=== PATIENT | female | born 1970 | race Caucasian/White ===

== ENCOUNTER 2017-07-16 09:44 | Inpatient (IN) | payer BC ==
--- NOTE | 2017-07-16 09:59 | ER Document Report ---
ED General - General Chief Complaint: Chest Pain Stated Complaint: CHEST PAIN Time Seen by Provider: 07/16/17 09:58 Mode of Arrival: Ambulatory Information source: Patient TRAVEL OUTSIDE OF THE [place] IN LAST 30 DAYS: No - HPI Notes: 47 yr old female presents today with complaints of having substernal chest pain that started 6 hours ago while she was driving, reports pain radiated to right and left arms. episode lasted for approximately 5 minutes. pt took nitro that she had in her bag and noticed her chest pain was relieved after taking medication. Pt states she had a cardiac authorization done approximately 6 years ago when she was [place] when she had substernal chest pain. Patient was following with cardiology annually while she was in [place], although she lost her health insurance 2 years ago, states she just received a job where she is able to receive health insurance again. She smokes half a pack a day for last 10 years. Reports history of hypercholesterolemia. States her father of Hodgkin's, unknown if he had any cardiac or heart conditions. Mother patient reports has a history of hypertension diabetes. 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 Patient has not had any chest pain since she took nitro tablet this morning. Denies fevers, chills, chest pain, palpitations, shortness of breath, dyspnea, nausea, vomiting, diarrhea, abdominal pain, hematuria,blurred vision, double vision, loss of vision, speech changes, LH, dizziness, syncope, headaches, wheezing, ST, URI, neck pain, weakness, bowel or bladder dysfunction, saddle anesthesia, numbness or tingling in bilateral upper or lower extremities equally, muscle paralysis, weakness in bilateral upper or lower extremities equally or rash. Denies IV drug use. - Related Data Allergies/Adverse Reactions: No Known Allergies Allergy (Unverified 07/16/17 09:45) Past Medical History - General Information source: Patient - Social History Smoking Status: Current Every Day Smoker - 1/2 ppd x 10 years Family History: CAD, Hypertension Review of Systems - Review of Systems Notes: REVIEW OF SYSTEMS: CONSTITUTIONAL : Denies fever, chills, or sweats. Denies recent illness. EENT: Denies eye, ear, throat, or mouth pain or symptoms. Denies nasal or sinus congestion or discharge. Denies throat, tongue, or mouth swelling or difficulty swallowing. CARDIOVASCULAR: reports chest pain. Denies palpitations or racing or irregular heart beat. Denies ankle edema. RESPIRATORY: Denies cough, cold, or chest congestion. Denies shortness of breath, difficulty breathing, or wheezing. GASTROINTESTINAL: Denies abdominal pain or distention. Denies nausea, vomiting , or diarrhea. Denies blood in vomitus, stools, or per rectum. Denies black, tarry stools. Denies constipation. GENITOURINARY: Denies difficulty urinating, painful urination, burning, frequency, blood in urine, or discharge. FEMALE GENITOURINARY: Denies vaginal bleeding, heavy or abnormal periods, irregular periods. Denies vaginal discharge or odor. MUSCULOSKELETAL: Denies back or neck pain or stiffness. Denies joint pain or swelling. SKIN: Denies rash, lesions or sores. HEMATOLOGIC : Denies easy bruising or bleeding. LYMPHATIC: Denies swollen, enlarged glands. NEUROLOGICAL: Denies confusion or altered mental status. Denies passing out or loss of consciousness. Denies dizziness or lightheadedness. Denies headache. Denies weakness or paralysis or loss of use of either side. Denies problems with gait or speech. Denies sensory loss, numbness, or tingling. Denies seizures. PSYCHIATRIC: Denies anxiety or stress. Denies depression, suicidal ideation, or homicidal ideation. ALL OTHER SYSTEMS REVIEWED AND NEGATIVE. PHYSICAL EXAMINATION: GENERAL: Well-appearing, well-nourished and in no acute distress. HEAD: Atraumatic, normocephalic. EYES: Pupils equal round and reactive to light, extraocular movements intact, conjunctiva are normal. ENT: Nares patent, oropharynx clear without exudates. Moist mucous membranes. NECK: Normal range of motion, supple without lymphadenopathy LUNGS: Breath sounds clear to auscultation bilaterally and equal. No wheezes rales or rhonchi. HEART: Regular rate and rhythm without murmurs ABDOMEN: Soft, nontender, nondistended abdomen. No guarding, no rebound. No masses appreciated. Female : deferred Musculoskeletal: Normal range of motion, no pitting or edema. No cyanosis. NEUROLOGICAL: Cranial nerves grossly intact. Normal speech, normal gait. Normal sensory, motor exams PSYCH: Normal mood, normal affect. SKIN: Warm, Dry, normal turgor, no rashes or lesions noted. Dictation was performed using [employer] recognition software Physical Exam - Vital signs Vitals: Temp Pulse Resp BP Pulse Ox 98.3 F 66 14 141/84 H 100 07/16/17 09:53 07/16/17 09:53 07/16/17 09:53 07/16/17 09:53 07/16/17 09:53 Course - Re-evaluation Re-evalutation: Discussed the results of the labs/radiology as well as the diagnosis at great length. Since cardiac enzymes elevated with a troponin of 0.12, EKG negative for a STEMI. No leukocytosis noted, renal and liver function within normal range. Discussed with patient since she did have relief with nitro, that she does need further cardiac evaluation with a stress test as well as a echocardiogram of the heart. Advised patient that we will continue to monitor her troponins.. If she experiences any chest pain, shortness of breath, any anxiety to alert us right away. 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 Patient verbalized understanding of the reasons why she needs to be admitted for observation, all questions and concerns answered by this provider. Consulted with Dr.Obayomi Starkey, hospitalist, will admit patient due to elevated troponin with relief with nitro to observation on telemetry for further further evaluation cardiac stress test as well as echocardiogram. - Vital Signs Vital signs: Temp Pulse Resp BP Pulse Ox 98.3 F 66 22 H 126/91 H 100 07/16/17 09:53 07/16/17 09:53 07/16/17 12:01 07/16/17 12:01 07/16/17 12:01 - Laboratory Result Diagrams: 07/16/17 10:21 07/16/17 10:21 Laboratory results interpreted by me: 07/16/17 10:21 Glucose 133 H Calcium 10.4 H Creatine Kinase 197 H - EKG Interpretation by Sd EKG shows normal: Sinus rhythm Rate: Normal Rhythm: NSR Voltage: Consistant with LVH When compared to previous EKG there are: Previous EKG unavailable Discharge - Discharge Clinical Impression: Unstable angina Condition: Good Disposition: ADMITTED OBSERVATION Admitting Provider: Hospitalist - Dr. Ana M Starkey Unit Admitted: Telemetry
[2017-07-16 10:43] LABS: APPEARANCE,URINE CLEAR; BILIRUBIN,URINE NEGATIVE (NEGATIVE); COLOR,URINE STRAW; GLUCOSE, URINE NEGATIVE (NEGATIVE); KETONES,URINE NEGATIVE (NEGATIVE); LEUKOCYTE ESTERASE,URINE NEGATIVE (NEGATIVE); NITRITE,URINE NEGATIVE (NEGATIVE); PROTEIN,URINE NEGATIVE (NEGATIVE); URINE SPECIFIC GRAVITY 1.003; UROBILINOGEN,URINE NEGATIVE mg/dL (<2.0)
[2017-07-16 10:45] LABS: ABSOLUTE BASOPHILS # (AUTO) 0.1 10^3/uL (0.0-0.2); ABSOLUTE EOSINOPHILS # (AUTO) 0.2 10^3/uL (0.0-0.6); ABSOLUTE LYMPHOCYTES (AUTO) 2.9 10^3/uL (0.5-4.7); ABSOLUTE MONOCYTES (AUTO) 0.4 10^3/uL (0.1-1.4); ABSOLUTE NEUT (AUTO) 5.9 10^3/uL (1.7-8.2); BASOPHILS % (AUTO) 0.9 % (0-2); EOSINOPHILS % (AUTO) 2.1 % (0-6); LYMPHOCYTES % (AUTO) 30.8 % (13-45); MEAN CORPUSCULAR HEMOGLOBIN 30.3 pg (27.0-33.4); MEAN CORPUSCULAR VOLUME 89 fl (80-97); MONOCYTES % (AUTO) 4.3 % (3-13); PLATELET COUNT 389 10^3/uL (150-450); RED BLOOD COUNT 4.94 10^6/uL (3.72-5.28); RED CELL DISTRIBUTION WIDTH 13.1 % (11.5-14.0); SEGMENTED NEUTROPHILS % (AUTO) 61.9 % (42-78); TOTAL CELLS COUNTED % (AUTO) 100 %; WHITE BLOOD COUNT 9.5 10^3/uL (4.0-10.5)
--- NOTE | 2017-07-16 10:46 | RADIOLOGY REPORT (SQ) ---
EXAM DESCRIPTION: CHEST SINGLE VIEW COMPLETED DATE/TIME: 07/16/2017 10:21 am REASON FOR STUDY: cp COMPARISON: None. EXAM PARAMETERS: NUMBER OF VIEWS: One view. TECHNIQUE: Single frontal radiographic view of the chest acquired. RADIATION DOSE: NA LIMITATIONS: None. FINDINGS: LUNGS AND PLEURA: No opacities, masses or pneumothorax. No pleural effusion. MEDIASTINUM AND HILAR STRUCTURES: No masses. Contour normal. HEART AND VASCULAR STRUCTURES: Heart normal in size. Normal vasculature. BONES: No acute findings. HARDWARE: None in the chest. OTHER: No other significant finding. IMPRESSION: NO ACUTE RADIOGRAPHIC FINDING IN THE CHEST. TECHNICAL DOCUMENTATION: JOB ID: [id number] [employer]- All Rights Reserved Reading location - IP/workstation name: [email or web address]
[2017-07-16 10:48] LABS: ALANINE AMINOTRANSFERASE 42 U/L (9-52); ALBUMIN 4.6 g/dL (3.5-5.0); ALKALINE PHOSPHATASE 64 U/L (38-126); ANION GAP 11 (5-19); ASPARTATE AMINO TRANSFERASE 28 U/L (14-36); BILIRUBIN,DIRECT 0.1 mg/dL (0.0-0.4); BILIRUBIN,TOTAL 0.4 mg/dL (0.2-1.3); BLOOD UREA NITROGEN 8 mg/dL (7-20); CALCIUM 10.4 mg/dL (8.4-10.2); CARBON DIOXIDE 30 mmol/L (22-30); CHLORIDE 103 mmol/L (98-107); CREATINE KINASE 197 U/L (30-135); GLUCOSE 133 mg/dL (75-110); POTASSIUM 4.1 mmol/L (3.6-5.0); SODIUM 143.9 mmol/L (137-145); TOTAL PROTEIN 7.1 g/dL (6.3-8.2)
[2017-07-16] MEDS ORDERED: OXYCODONE-ACETAMINOPHEN 5-325 MG TABLET PO PRN (14:17)
[2017-07-16] MEDS ORDERED: ONDANSETRON HCL INJ/PF 4 MG/2 ML SDV IV PRN (14:17)
[2017-07-16] MEDS ORDERED: ACETAMINOPHEN 325 MG TABLET PO PRN (14:17)
[2017-07-16] MEDS ORDERED: MAG HYDROX/AL HYDROX/SIMETH SUSP 30 ML UDCUP PO PRN (14:17)
[2017-07-16] MEDS ORDERED: ASPIRIN 325 MG TABLET PO ONE (15:30)
[2017-07-16] MEDS ORDERED: METOPROLOL TARTRATE 25 MG TABLET PO ONE (15:30)
[2017-07-16] MEDS: DEXTROSE 5%-1/2 NORMAL SALINE 1,000 ML IV PRN (15:47)
[2017-07-16] MEDS ORDERED: DOCUSATE SODIUM 100 MG CAPSULE PO ONE (16:00)
[2017-07-16] MEDS ORDERED: ATORVASTATIN CALCIUM 40 MG TABLET PO ONE (16:00)
--- NOTE | 2017-07-16 18:43 | PDOC H&P ---
History of Present Illness Admission Date/PCP: 07/16/17 12:08 Patient complains of: Chest Pain, non radiating and not associated with nausea or vomiting History of Present Illness: MELONY KOROMA is a 47 year old female who presents to ED with c/o chest pain, not associated with nausea or vomiting, which improved even before using some 2 year old SL NTG. She is currently chest pain free at time of exam. She states she has H/o CAD with 4 stents placed about 4 years ago. She really has not had any significant chest pain since then till today and had not use SL NTG till today. She stopped using any medications about 2 years ago when [place]. She was on ASA, Pravachol, Metoprolol, Lisinopril none of which she has taken in about 2 years and she also continues to smoke Past Medical History Cardiac Medical History: Reports: Myocardial Infarction, Hypertension Past Surgical History Past Surgical History: Reports: Cardiac Catheterization, Coronary Stent Social History Information Source: Patient Lives with: Family Smoking Status: Current Every Day Smoker - 1/2 ppd x 10 years Frequency of Alcohol Use: Rare Drugs: None Hx Prescription Drug Abuse: No Family History Family History: Reviewed & Not Pertinent, CAD, Hypertension Parental Family History Reviewed: Yes Children Family History Reviewed: Yes Sibling(s) Family History Reviewed.: Yes Medication/Allergy Home Medications: No Home Medications 07/16/17 Allergies/Adverse Reactions: No Known Allergies Allergy (Unverified 07/16/17 09:45) Review of Systems All systems: reviewed and no additional remarkable complaints except as stated Cardiovascular: PRESENT: chest pain. ABSENT: orthropnea, palpitations Physical Exam Vital Signs: Temp Pulse Resp BP Pulse Ox 98.3 F 66 14 116/82 98 07/16/17 09:53 07/16/17 09:53 07/16/17 13:01 07/16/17 13:01 07/16/17 13:01 General appearance: PRESENT: no acute distress, obese, well-developed, well- nourished Head exam: PRESENT: atraumatic, normocephalic Eye exam: PRESENT: conjunctiva pink, EOMI, PERRLA. ABSENT: scleral icterus Ear exam: PRESENT: normal external ear exam Mouth exam: PRESENT: moist, tongue midline Neck exam: ABSENT: carotid bruit, JVD, lymphadenopathy, thyromegaly Respiratory exam: PRESENT: clear to auscultation luis felipe. ABSENT: rales, rhonchi, wheezes Cardiovascular exam: PRESENT: RRR. ABSENT: diastolic murmur, rubs, systolic murmur Pulses: PRESENT: normal dorsalis pedis pul Vascular exam: PRESENT: normal capillary refill GI/Abdominal exam: PRESENT: normal bowel sounds, soft. ABSENT: distended, guarding, mass, organolmegaly, rebound, tenderness Rectal exam: PRESENT: deferred Extremities exam: PRESENT: full ROM. ABSENT: calf tenderness, clubbing, pedal edema Neurological exam: PRESENT: alert, awake, oriented to person, oriented to place , oriented to time, oriented to situation, CN II-XII grossly intact. ABSENT: motor sensory deficit Psychiatric exam: PRESENT: appropriate affect, normal mood. ABSENT: homicidal ideation, suicidal ideation Skin exam: PRESENT: dry, intact, warm. ABSENT: cyanosis, rash Results Laboratory Results: 07/16/17 13:57 Creatine Kinase 176 H Impressions: Chest X-Ray 07/16/17 10:00 IMPRESSION: NO ACUTE RADIOGRAPHIC FINDING IN THE CHEST. Assessment & Plan - Diagnosis (1) CAD (coronary artery disease) Qualifiers: Coronary Disease-Associated Artery/Lesion type: [place] artery Associated angina: with unstable angina Is this a current diagnosis for this admission?: Yes Plan: Troponin, Cardiology consult (2) Stented coronary artery Is this a current diagnosis for this admission?: Yes (3) Tobacco abuse Is this a current diagnosis for this admission?: Yes Plan: Counselled on need to stop smoking (4) Tobacco abuse counseling Is this a current diagnosis for this admission?: Yes Plan: 3 minutes counselling (6) Unstable angina Is this a current diagnosis for this admission?: Yes Plan: Cardiology, order stress test pending Cadiology Evaluation - Time Time Spent: 30 to 50 Minutes Smoking Cessation Education: 3 to 10 minutes Medications reviewed and adjusted accordingly: Yes Anticipated discharge: Home Within: within 24 hours
--- NOTE | 2017-07-16 21:46 | EKG REPORT ---
SEVERITY:- ABNORMAL ECG - SINUS RHYTHM PROBABLE LEFT VENTRICULAR HYPERTROPHY : Confirmed by: Vikram Araya 16-Jul-2017 21:46:07
--- NOTE | 2017-07-16 21:46 | EKG REPORT ---
SEVERITY:- NORMAL ECG - SINUS RHYTHM : Confirmed by: Vikram Araya 16-Jul-2017 21:45:56
[2017-07-16] MEDS: RANOLAZINE 500 MG TAB.SR.12H PO SCH (21:55)
[2017-07-16] MEDS: ENOXAPARIN SODIUM INJ 40 MG/0.4 ML DISP.SYRIN SUBCUT SCH (21:56)
[2017-07-16] MEDS: METOPROLOL TARTRATE 25 MG TABLET PO SCH (21:56)
[2017-07-16] MEDS: ATORVASTATIN CALCIUM 80 MG TABLET PO SCH (21:56)
[2017-07-16] MEDS ORDERED: CLOPIDOGREL BISULFATE 300 MG TABLET PO ONE (22:00)
--- NOTE | 2017-07-16 22:12 | PDOC CONSULTATION ---
Consultation Consult Date: 07/16/17 Attending physician:: ADAMA BYRNE Consult reason:: Chest pain History of Present Illness Admission Date/PCP: 07/16/17 12:08 Patient complains of: Chest pain History of Present Illness: MELONY KOROMA is a 47 year old female who presents to ED with c/o chest pain, not associated with nausea or vomiting, which improved even before using some 2 year old SL NTG. She is currently chest pain free at time of exam. She states she has H/o CAD with 4 stents placed about 4 years ago. She really has not had any significant chest pain since then till today and had not use SL NTG till today. She stopped using any medications about 2 years ago when [place] She was on ASA, Pravachol, Metoprolol, Lisinopril none of which she has taken in about 2 years and she also continues to smoke. This history was reviewed and confirmed. Patient subsequently noted to have abnormal troponin I elevation in the non-STEMI range. Patient claims to have been under some stress. Patient's son is the surrogate decision-maker. Past Medical History Cardiac Medical History: Reports: Myocardial Infarction, Hypertension Musculoskeltal Medical History: Reports: Arthritis Hematology: Reports: Anemia Past Surgical History Past Surgical History: Reports: Cardiac Catheterization, Coronary Stent Social History Information Source: Patient Lives with: Family Smoking Status: Current Every Day Smoker - 1/2 ppd x 10 years Frequency of Alcohol Use: Rare Drugs: None Hx Prescription Drug Abuse: No - Advance Directive Resuscitation Status: Full Code Surrogate healthcare decision maker:: Patient's son is the surrogate decision-maker Family History Family History: Reviewed & Not Pertinent, CAD, Hypertension Parental Family History Reviewed: Yes Children Family History Reviewed: Yes Sibling(s) Family History Reviewed.: Yes Medication/Allergy Home Medications: Aspirin [Ecotrin 81 mg EC Tablet] 81 mg PO DAILY tabec 07/18/17 Atorvastatin Calcium [Lipitor 80 mg Tablet] 80 mg PO QHS #30 tablet 07/18/17 Clopidogrel Bisulfate [Plavix 75 mg Tablet] 75 mg PO DAILY #30 tablet 07/18/17 Isosorbide Mononitrate [Imdur 30 mg Tablet.er] 30 mg PO DAILY #30 tab.er.24h 11/28 Metoprolol Succinate [Toprol Xl 25 mg Tab.sr] 25 mg PO Q12 #60 tab.sr.24h Ramipril [Altace 1.25 mg Capsule] 1.25 mg PO DAILY #30 capsule 07/18/17 Ranolazine [Ranexa 500 mg Tab.sr] 1,000 mg PO Q12 #120 tab.sr.12h 07/18/17 Allergies/Adverse Reactions: No Known Allergies Allergy (Unverified 07/16/17 09:45) Review of Systems Review of Systems: Please see history of present illness and past medical history as wall. Constitutional: No fever or chills reported. Head : No recent chronic headaches, recent head injury. Eyes: No recent eye pain, diplopia, redness, discharge, acute visual changes. Ears: No recent chronic ear pain, acute hearing loss, ear discharge. Oral cavity: No recent ulcerations, bleeding, oral cavity discomfort. Neck: No recent acute neck pain reported. Hematologic: No recent easy bruising or bleeding or hematologic malignancy reported. Lymphatic: No recent lymphatic malignancy, chronic lymphadenopathy reported yet Cardiovascular system review: See history of present illness. Respiratory system review: No recent chronic cough, hemoptysis, blood clots in the lungs reported. Mild Shortness of breath on exertion Gastrointestinal system review: Negative for any recent acute or chronic abdominal pain, hematemesis, melena, recent change in bowel habits. Genitourinary system review: No recent acute or chronic hematuria, flank pain, UTI etc. reported. Skin system review: Negative for any recent abnormal bruising, no rash, no pruritus reported. Neurologic: No prior history of strokes, mini strokes, seizure disorder. Psychologic: No history of major psychosis or major depression reported. Musculoskeletal: Minor aches and pains reported. No acute joint swelling reported. Endocrine: No recent polyuria, polydipsia, recent heat or cold intolerance. Physical Exam Vital Signs: Temp Pulse Resp BP Pulse Ox 97.7 F 60 17 121/79 97 07/16/17 20:46 07/16/17 20:46 07/16/17 20:46 07/16/17 20:46 07/16/17 20:46 Intake & Output 07/15/17 07/16/17 07/17/17 06:59 06:59 06:59 Weight 112.8 kg Exam: GENERAL: well-nourished and in no acute distress. Alert and oriented x3 HEAD: Atraumatic, normocephalic. EYES: Pupils equal round and reactive to light, extraocular movements intact, sclera anicteric, conjunctiva are normal. ENT: TMs normal, nares patent, oropharynx clear without exudates. Moist mucous membranes. No oral ulcerations or bleeding gums noted NECK: supple without lymphadenopathy. Trachea is central. No cervical or axillary lymphadenopathy noted. Carotids are 2+, JVD WNL LUNGS: Respiration seems nonlabored, no significant accessory muscle action noted. Breath sounds clear to auscultation bilaterally and equal noted. No wheezes rales or rhonchi noted. No significant dullness noted on percussion. CHEST: Palpation of the chest wall shows no significant chest wall tenderness. No other significant abnormalities noted. 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 ABDOMEN: Soft, no significant tenderness appreciated, normoactive bowel sounds. No guarding, no rebound. No rigidity noted . No masses appreciated. EXTREMITIES: Pedal pulses are 1-2+, no calf tenderness noted. No clubbing or cyanosis.trace pedal edema noted NEUROLOGICAL: Focused neurological exam showed no significant neurologic deficit. Normal speech, no focal weakness appreciated. PSYCH: Normal mood, normal affect. Judgment and insight within normal limits. SKIN: No significant ecchymosis, skin is noted to be warm. MUSCULOSKELETAL EXAM: No significant acute joint swelling noted. Results Laboratory Results: 07/16/17 07/16/17 07/16/17 13:57 13:57 20:00 Creatine Kinase 176 H Troponin I 0.154 0.186 EKG Comments: Sinus rhythm, no acute ST-T wave changes noted Impressions: Chest X-Ray 07/16/17 10:00 IMPRESSION: NO ACUTE RADIOGRAPHIC FINDING IN THE CHEST. Assessment & Plan - Diagnosis (1) NSTEMI (non-ST elevated myocardial infarction) Is this a current diagnosis for this admission?: Yes (2) CAD (coronary artery disease) Qualifiers: Coronary Disease-Associated Artery/Lesion type: [place] artery Associated angina: with unstable angina Is this a current diagnosis for this admission?: Yes (3) Stented coronary artery Is this a current diagnosis for this admission?: Yes (4) Tobacco abuse Is this a current diagnosis for this admission?: Yes (5) Obesity (BMI 30-39.9) Is this a current diagnosis for this admission?: Yes - Notes Notes: [facility] medical Rx. Cancel NST for tomorrow. Stabilise and stress test when stable. If recurrent chest pain transfer to tertiary care for Heart Cath. Patient advised aggressive risk factor modification and medical management for the time being. Will reschedule stress test if patient remains chest pain-free. Patient's medical management is being optimized. Medical therapy for known CAD discussed. Patient advised tobacco cessation. - Time Time Spent: 30 to 50 Minutes - More than 50% of the time spent coordinating care , discussing management plans with involved caregivers. Management plans discussed with involved personnels. Medical decision making was of moderate to high complexity, patient's has multiple comorbidities. Medications reviewed and adjusted accordingly: Yes
[2017-07-17] MEDS: ALPRAZOLAM 0.25 MG TABLET PO PRN ×3 (04:01→23:41)
[2017-07-17] MEDS: DEXTROSE 5%-1/2 NORMAL SALINE 1,000 ML IV PRN ×2 (04:04→21:40)
[2017-07-17 05:28] LABS: CHOLESTEROL 173.05 mg/dL (0-200); CREATINE KINASE 114 U/L (30-135); TRIGLYCERIDES 95 mg/dL (<150)
[2017-07-17 05:39] LABS: DIRECT LDL 108 mg/dL (<100)
[2017-07-17] MEDS ORDERED: LANSOPRAZOLE 30 MG TAB.RAP.DR PO SCH (06:00)
--- NOTE | 2017-07-17 09:10 | EKG REPORT ---
SEVERITY:- ABNORMAL ECG - SINUS RHYTHM BORDERLINE LEFT AXIS DEVIATION NONSPECIFIC T ABNORMALITIES, LATERAL LEADS : Confirmed by: Vikram Araya 17-Jul-2017 09:09:55
[2017-07-17] MEDS ORDERED: ASPIRIN 325 MG TABLET PO SCH (10:00)
[2017-07-17] MEDS ORDERED: ENOXAPARIN SODIUM INJ 40 MG/0.4 ML DISP.SYRIN SUBCUT SCH (10:00)
--- NOTE | 2017-07-17 10:37 | RADIOLOGY REPORT (SQ) ---
EXAM DESCRIPTION: CTA CHEST COMPLETED DATE/TIME: 07/17/2017 10:11 am REASON FOR STUDY: CP COMPARISON: None. TECHNIQUE: CT scan of the chest performed using helical scanning technique with dynamic intravenous contrast injection. Images reviewed with lung, soft tissue and bone windows. Reconstructed coronal and sagittal MPR images reviewed. Additional 3 dimensional post-processing performed to develop Maximal Intensity Projection images (IL P). All images stored on PACS. All CT scanners at this facility use dose modulation, iterative reconstruction, and/or weight based d osing when appropriate to reduce radiation dose to as low as reasonably achievable (ALARA). [facility]: Dose Right [facility]: CareDose [facility]: Dose Right [facility]: Teradose 4D [facility]: [employer] CONTRAST TYPE AND DOSE: contrast/concentration: Isovue 370.00 mg/ml; Total Contrast Delivered: 76.0 ml; Total Saline Delivered: 84.0 ml RENAL FUNCTION: GFR > 60. RADIATION DOSE: CT Rad equipment meets quality standard of care and radiation dose reduction techniq ues were employed. CTDIvol: 11.3 - 15.5 mGy. DLP: 558 mGy-cm. . LIMITATIONS: None. FINDINGS: LUNGS AND PLEURA: No masses, infiltrates, pneumothorax. No pleural effusions, calcificati ons. AORTA AND GREAT VESSELS: No aneurysm. Contrast bolus not optimized for the aorta. HEART: No pericardial effusion. PULMONARY ARTERIES: No emboli visualized in the main pulmonary arteries or the segmental branches. HILAR AND MEDIASTINAL STRUCTURES: No identified masses or abnormal nodes. HARDWARE: None in the chest. UPPER ABDOMEN: Lap band. THYROID AND OTHER SOFT TISSUES: No masses. No adenopathy. BONES: Pectus deformity. 3D MIPS: Confirm above findings. OTHER: No other significant finding. IMPRESSION: No PE. No acute findings. COMMENT: Quality ID # [id number]: Final reports with documentation of one or more dose reduction techniques (e.g., Automated exposure control, adjustment of the mA and/or kV according to patient size, use of iterative reconstruction technique) TECHNICAL DOCUMENTATION: JOB ID: [id number] [employer]- All Rights Reserved Reading location - IP/workstation name: [email or web address]
[2017-07-17] MEDS: CLOPIDOGREL BISULFATE 75 MG TABLET PO SCH (11:09)
[2017-07-17] MEDS: ENOXAPARIN SODIUM INJ 40 MG/0.4 ML DISP.SYRIN SUBCUT SCH (11:09)
[2017-07-17] MEDS: ASPIRIN 81 MG TABLET, ENT COATED PO SCH (11:09)
[2017-07-17] MEDS: METOPROLOL TARTRATE 25 MG TABLET PO SCH (11:10)
[2017-07-17] MEDS: RAMIPRIL 1.25 MG CAPSULE PO SCH (11:11)
[2017-07-17] MEDS: RANOLAZINE 500 MG TAB.SR.12H PO SCH ×2 (11:12→21:40)
[2017-07-17] MEDS: DOCUSATE SODIUM 100 MG CAPSULE PO SCH (11:23)
--- NOTE | 2017-07-17 13:03 | PDOC PROGRESS REPORT ---
Subjective Progress Note for:: 07/17/17 Subjective:: Patient seems to be doing better with gradual improvement. Pt is denying any chest arm or neck discomfort. Patient denying any PND, orthopnea. Patient denied any sustained palpitations, dizziness, syncope, near syncope. Patient denying any fever chills. Patient denying any other significant discomfort. Patient is maintaining sinus rhythm. Review of systems: Rest review of systems negative. Medications: Medications have been reviewed. Reason For Visit: UNSTABLE ANGINA,CAD,CHEST PAIN Physical Exam Vital Signs: Temp Pulse Resp BP Pulse Ox 98.1 F 57 L 16 132/63 H 100 07/17/17 12:31 07/17/17 12:31 07/17/17 12:31 07/17/17 12:31 07/17/17 12:31 Intake & Output 07/16/17 07/17/17 07/18/17 06:59 06:59 06:59 Intake Total 100 Balance 100 Weight 112.8 kg Exam: GENERAL: well-nourished and in no acute distress. Alert and oriented x3 HEAD: Atraumatic, normocephalic. EYES: Pupils equal round and reactive to light, extraocular movements intact, sclera anicteric, conjunctiva are normal. ENT: TMs normal, nares patent, oropharynx clear without exudates. Moist mucous membranes. No oral ulcerations or bleeding gums noted NECK: supple without lymphadenopathy. Trachea is central. No cervical or axillary lymphadenopathy noted. Carotids are 2+, JVD WNL LUNGS: Respiration seems nonlabored, no significant accessory muscle action noted. Breath sounds clear to auscultation bilaterally and equal noted. No wheezes rales or rhonchi noted. No significant dullness noted on percussion. CHEST: Palpation of the chest wall shows no significant chest wall tenderness. No other significant abnormalities noted. HEART: [place] [employer], No PSH, 1/6 TAL aortic area, 1/6 delgado systolic murmur mitral area, no rubs, no gallops. ABDOMEN: Soft, no significant tenderness appreciated, normoactive bowel sounds. No guarding, no rebound. No rigidity noted . No masses appreciated. EXTREMITIES: Pedal pulses are 1-2+, no calf tenderness noted. No clubbing or cyanosis.trace to 1+ pedal edema noted NEUROLOGICAL: Focused neurological exam showed no significant neurologic deficit. Normal speech, no focal weakness appreciated. PSYCH: Normal mood, normal affect. Judgment and insight within normal limits. SKIN: No significant ecchymosis, skin is noted to be warm. MUSCULOSKELETAL EXAM: No significant acute joint swelling noted. Results Laboratory Results: 07/17/17 03:59 Magnesium 2.0 Triglycerides 95 Cholesterol 173.05 LDL Cholesterol Direct 108 H VLDL Cholesterol 19.0 HDL Cholesterol 50 07/16/17 07/16/17 07/16/17 13:57 13:57 20:00 Creatine Kinase 176 H Troponin I 0.154 0.186 07/17/17 03:59 Creatine Kinase 114 Troponin I EKG Comments: Twelve-lead EKG shows minor nonspecific T-wave inversion lateral chest leads. Impressions: Chest X-Ray 07/16/17 10:00 IMPRESSION: NO ACUTE RADIOGRAPHIC FINDING IN THE CHEST. Chest/Abdomen CTA 07/17/17 08:28 IMPRESSION: No PE. No acute findings. Assessment & Plan - Diagnosis (2) CAD (coronary artery disease) Qualifiers: Coronary Disease-Associated Artery/Lesion type: [place] artery Associated angina: with unstable angina Is this a current diagnosis for this admission?: Yes (3) Stented coronary artery Is this a current diagnosis for this admission?: Yes (4) Tobacco abuse Is this a current diagnosis for this admission?: Yes (5) Obesity (BMI 30-39.9) Is this a current diagnosis for this admission?: Yes - Notes Notes: Non-STEMI: This is based on troponin I elevation and presence of chest pain. Most likely related to acute coronary syndrome. Stress test was postponed. Patient offered transfer to tertiary care for heart catheterization but she declined and did not want transfer out. Patient keeps telling me that she wants to go home. Patient was placed on Xanax yesterday. Patient was offered heart catheterization but she is not able to make up her mind currently does not want to be transferred out. 2D echo shows normal LVEF. CTA reviewed showed stents in the mid LAD and proximal and distal RCA. Have requested previous heart catheterization and discharge summary report. Patient provisionally is scheduled for a stress test tomorrow. Patient will be encouraged to ambulate today. If she has chest pain on ambulation, first preference will be to transfer for heart catheterization. In the meantime will optimize medical management. Coronary artery disease: Medical management is being optimized. Coronary stent: Have requested reports from previous hospitalization. Tobacco abuse: Patient advised to quit smoking. Obesity: Patient encouraged in gradual weight loss. - Time Time with patient: Greater than 35 minutes - CODE STATUS was discussed, patient remains full code. Surrogate decision-maker unchanged. Multiple medical problems were addressed. More than 50% of the time spent coordinating care, discussing management plans with involved caregivers. Management plans discussed with involved personnels. Medical decision making was of moderate to high complexity, patient's has multiple comorbidities. Medications reviewed and adjusted accordingly: Yes
[2017-07-17] MEDS ORDERED: FAMOTIDINE 20 MG TABLET PO ONE (13:17)
--- NOTE | 2017-07-17 14:08 | Physician Advisory Note ---
Physician Advisor ProgressNote .: [facility] medical [facility] for this patient. Physician Advisor Statement: Please consider documenting, if you agree: 1. "NSTEMI, likely involving the ____ [lateral?] wall/ [Lt circumflex?] coronary artery" Status: [facility] pt came in approp'ly Obs for CP, w/development after arrival of new lateral TWave inversions & progressively worsening trop I levels. Pt not wanting to be transferred for cath. Appropriate for Inpt status by medical necessity if attending agrees (2-[place] Rule doesn't apply to [place] pts, though she may stay a 2nd [place] too). Thanks! CK
--- NOTE | 2017-07-17 18:41 | PDOC PROGRESS REPORT ---
Subjective Progress Note for:: 07/17/17 Subjective:: Patient states that she is not having chest pain. Patient states her stress test will be completed tomorrow. Patient states that Dr. Altman spoke to her about possibly going to a tertiary facility and she states that currently she does not want to go because she has been told that everything is looking good. Reason For Visit: UNSTABLE ANGINA,CAD,CHEST PAIN Physical Exam Vital Signs: Temp Pulse Resp BP Pulse Ox 98.4 F 72 16 125/56 L 98 07/17/17 15:32 07/17/17 15:32 07/17/17 15:32 07/17/17 15:32 07/17/17 15:32 General appearance: PRESENT: no acute distress, well-developed, well-nourished Head exam: PRESENT: atraumatic, normocephalic Eye exam: PRESENT: conjunctiva pink, EOMI. ABSENT: scleral icterus Ear exam: PRESENT: normal external ear exam Mouth exam: PRESENT: moist, tongue midline Neck exam: ABSENT: carotid bruit, JVD, lymphadenopathy, thyromegaly Respiratory exam: PRESENT: clear to auscultation luis felipe. ABSENT: rales, rhonchi, wheezes Cardiovascular exam: PRESENT: RRR. ABSENT: diastolic murmur, rubs, systolic murmur Pulses: PRESENT: normal dorsalis pedis pul Vascular exam: PRESENT: normal capillary refill GI/Abdominal exam: PRESENT: normal bowel sounds, soft. ABSENT: distended, guarding, mass, organolmegaly, rebound, tenderness Rectal exam: PRESENT: deferred Extremities exam: PRESENT: full ROM. ABSENT: calf tenderness, clubbing, pedal edema Neurological exam: PRESENT: alert, awake, oriented to person, oriented to place , oriented to time, oriented to situation, CN II-XII grossly intact. ABSENT: motor sensory deficit Psychiatric exam: PRESENT: appropriate affect, normal mood. ABSENT: homicidal ideation, suicidal ideation Skin exam: PRESENT: dry, intact, warm. ABSENT: cyanosis, rash Results Impressions: Chest X-Ray 07/16/17 10:00 IMPRESSION: NO ACUTE RADIOGRAPHIC FINDING IN THE CHEST. Chest/Abdomen CTA 07/17/17 08:28 IMPRESSION: No PE. No acute findings. Assessment & Plan - Diagnosis (1) NSTEMI (non-ST elevated myocardial infarction) Is this a current diagnosis for this admission?: Yes Plan: Patient to have second part of nuclear stress test performed tomorrow. It appears that cardiology has recommended the patient transfer to a tertiary center however patient is refusing to be transferred. Patient states that she is not having chest pain. (2) CAD (coronary artery disease) Qualifiers: Coronary Disease-Associated Artery/Lesion type: [place] artery Associated angina: with unstable angina Is this a current diagnosis for this admission?: Yes Plan: Status post stents: Per cardiology (3) Obesity (BMI 30-39.9) Is this a current diagnosis for this admission?: Yes Plan: Encourage dietary changes. (4) Stented coronary artery Is this a current diagnosis for this admission?: Yes Plan: S/P stent: Per Cardiology. (5) Tobacco abuse Is this a current diagnosis for this admission?: Yes Plan: Encourage stop smoking. - Time Time Spent with patient: 15-24 minutes
--- NOTE | 2017-07-17 20:51 | XCELERA REPORT ---
[address] [address] Transthoracic Echocardiogram Report Name: MELONY KOROMA Age: 47 yrs Gender: Female : 1970 Patient Status: Inpatient Patient Location: [address] [place] [address] Study Date: 07/17/2017 10:17 AM Height: 67 in Weight: 248 lb BSA: 2.2 m2 Procedure: A complete two-dimensional transthoracic echocardiogram was performed (2D, M-mode, spectral and color flow Doppler). The study was technically adequate with some images being suboptimal in quality. Reason For Study: Chest pain Ordering Physician: GRACIA WANG Performed By: Judy Scherer Interpretation Summary The left ventricular ejection fraction is normal. Doppler measurements suggest pseudonormalized left ventricular relaxation, which is associated with grade II/IV or mild to moderate diastolic dysfunction There is mild concentric left ventricular hypertrophy. The left ventricle is grossly normal size. No regional wall motion abnormalities noted. Borderline left atrial enlargement. There is a trace amount of mitral regurgitation There is no mitral valve stenosis. No aortic regurgitation is present. There is no aortic valve stenosis There is no tricuspid stenosis. No tricuspid regurgitation. The aortic root is not well visualized but is probably normal size. The inferior vena cava was not visualized There is no pericardial effusion. MMode/2D Measurements & Calculations RVDd: 3.0 cm LVIDd: 5.4 cm FS: 34.4 % Ao root diam: 2.6 cm IVSd: 1.0 cm LVIDs: 3.6 cm EDV(Teich): 143.9 ml LVPWd: 0.99 cm ESV(Teich): 53.3 ml Ao root area: 5.2 cm2 EF(Teich): 63.0 % LA dimension: 3.4 cm Doppler Measurements & Calculations MV E max johnny: MV P1/2t max johnny: Ao V2 max: LV V1 max P.1 cm/sec 72.1 cm/sec 109.3 cm/sec 2.2 mmHg MV A max johnny: MV P1/2t: 92.3 msec Ao max PG: LV V1 max: 75.0 cm/sec 4.8 mmHg 74.5 cm/sec MV E/A: 0.95 MVA(P1/2t): 2.4 cm2 MV dec slope: 228.8 cm/sec2 PA V2 max: 70.6 cm/sec PA max P.0 mmHg Left Ventricle The left ventricle is grossly normal size. There is mild concentric left ventricular hypertrophy. The left ventricular ejection fraction is normal. Doppler measurements suggest pseudonormalized left ventricular relaxation, which is associated with grade II/IV or mild to moderate diastolic dysfunction. No regional wall motion abnormalities noted. Right Ventricle The right ventricle is grossly normal size. There is normal right ventricular wall thickness. The right ventricular systolic function is normal. Atria The right atrium is normal in size. Borderline left atrial enlargement. Interarterial septum not well visualized and not well dopplered. Cannot comment on ASD/PFO presence. Mitral Valve The mitral valve is grossly normal. There is no mitral valve stenosis. There is a trace amount of mitral regurgitation. Aortic Valve The aortic valve is not well visualized secondary to technical limitations. The aortic valve opens well. There is no aortic valve stenosis. No aortic regurgitation is present. Tricuspid Valve The tricuspid valve is not well visualized secondary to technical limitations. There is no tricuspid stenosis. No tricuspid regurgitation. Pulmonic Valve The pulmonic valve is not well visualized. Great Vessels The aortic root is not well visualized but is probably normal size. The inferior vena cava was not visualized. Effusions There is no pericardial effusion. : GRACIA WANG > Vikram Araya
[2017-07-17] MEDS: ATORVASTATIN CALCIUM 80 MG TABLET PO SCH (21:39)
[2017-07-17] MEDS: FAMOTIDINE 20 MG TABLET PO SCH (21:40)
[2017-07-17] MEDS: ENOXAPARIN SODIUM INJ 120 MG/0.8 ML DISP.SYRIN SUBCUT SCH (21:41)
[2017-07-17] MEDS ORDERED: ATORVASTATIN CALCIUM 40 MG TABLET PO SCH (22:00)
[2017-07-18] MEDS: METOPROLOL SUCCINATE 25 MG TAB.SR.24H PO SCH ×2 (05:12→11:26)
[2017-07-18 07:14] LABS: ABSOLUTE BASOPHILS # (AUTO) 0.1 10^3/uL (0.0-0.2); ABSOLUTE EOSINOPHILS # (AUTO) 0.5 10^3/uL (0.0-0.6); ABSOLUTE LYMPHOCYTES (AUTO) 3.4 10^3/uL (0.5-4.7); ABSOLUTE MONOCYTES (AUTO) 0.5 10^3/uL (0.1-1.4); ABSOLUTE NEUT (AUTO) 4.4 10^3/uL (1.7-8.2); BASOPHILS % (AUTO) 1.3 % (0-2); EOSINOPHILS % (AUTO) 5.2 % (0-6); HEMATOCRIT 40.9 % (36.0-47.0); HEMOGLOBIN 13.7 g/dL (12.0-15.5); LYMPHOCYTES % (AUTO) 37.6 % (13-45); MEAN CORPUSCULAR HEMOGLOBIN 29.9 pg (27.0-33.4); MEAN CORPUSCULAR HGB CONC 33.6 g/dL (32.0-36.0); MEAN CORPUSCULAR VOLUME 89 fl (80-97); MONOCYTES % (AUTO) 6.2 % (3-13); PLATELET COUNT 315 10^3/uL (150-450); RED CELL DISTRIBUTION WIDTH 13.3 % (11.5-14.0); SEGMENTED NEUTROPHILS % (AUTO) 49.7 % (42-78); TOTAL CELLS COUNTED % (AUTO) 100 %; WHITE BLOOD COUNT 8.9 10^3/uL (4.0-10.5)
[2017-07-18 07:38] LABS: ALANINE AMINOTRANSFERASE 39 U/L (9-52); ALBUMIN 3.5 g/dL (3.5-5.0); ALKALINE PHOSPHATASE 57 U/L (38-126); ANION GAP 8 (5-19); ASPARTATE AMINO TRANSFERASE 24 U/L (14-36); BILIRUBIN,DIRECT 0.3 mg/dL (0.0-0.4); BILIRUBIN,TOTAL 0.5 mg/dL (0.2-1.3); BLOOD UREA NITROGEN 5 mg/dL (7-20); CALCIUM 9.4 mg/dL (8.4-10.2); CARBON DIOXIDE 25 mmol/L (22-30); CHLORIDE 109 mmol/L (98-107); GLUCOSE 102 mg/dL (75-110); POTASSIUM 3.8 mmol/L (3.6-5.0); TOTAL PROTEIN 6.2 g/dL (6.3-8.2)
--- NOTE | 2017-07-18 08:59 | EKG REPORT ---
SEVERITY:- ABNORMAL ECG - SINUS BRADYCARDIA PROBABLE LEFT VENTRICULAR HYPERTROPHY : Confirmed by: Vikram Araya 18-Jul-2017 08:57:58
[2017-07-18] MEDS: ENOXAPARIN SODIUM INJ 120 MG/0.8 ML DISP.SYRIN SUBCUT SCH (11:23)
[2017-07-18] MEDS: ASPIRIN 81 MG TABLET, ENT COATED PO SCH (11:23)
[2017-07-18] MEDS: CLOPIDOGREL BISULFATE 75 MG TABLET PO SCH (11:24)
[2017-07-18] MEDS: FAMOTIDINE 20 MG TABLET PO SCH (11:24)
[2017-07-18] MEDS: RAMIPRIL 1.25 MG CAPSULE PO SCH (11:24)
[2017-07-18] MEDS: RANOLAZINE 500 MG TAB.SR.12H PO SCH (11:24)
[2017-07-18] MEDS: DOCUSATE SODIUM 100 MG CAPSULE PO SCH (11:26)
--- NOTE | 2017-07-18 11:40 | PDOC PROGRESS REPORT ---
Subjective Progress Note for:: 07/18/17 Subjective:: Patient seems to be doing better with gradual improvement. Pt is denying any chest arm or neck discomfort. Patient denying any PND, orthopnea. Patient denied any sustained palpitations, dizziness, syncope, near syncope. Patient denying any fever chills. Patient denying any other significant discomfort. Patient continues to decline to pursue heart catheterization therefore came down for a stress test. Patient is maintaining sinus rhythm. Review of systems: Rest review of systems negative. Medications: Medications have been reviewed. Reason For Visit: UNSTABLE ANGINA,CAD,CHEST PAIN Physical Exam Vital Signs: Temp Pulse Resp BP Pulse Ox 98.1 F 59 L 12 116/59 L 96 07/18/17 08:03 07/18/17 08:03 07/18/17 08:03 07/18/17 08:03 07/18/17 08:03 Intake & Output 07/17/17 07/18/17 07/19/17 06:59 06:59 06:59 Intake Total 386 Balance 386 Weight 113 kg Exam: GENERAL: well-nourished and in no acute distress. Alert and oriented x3 HEAD: Atraumatic, normocephalic. EYES: Pupils equal round and reactive to light, extraocular movements intact, sclera anicteric, conjunctiva are normal. ENT: TMs normal, nares patent, oropharynx clear without exudates. Moist mucous membranes. No oral ulcerations or bleeding gums noted NECK: supple without lymphadenopathy. Trachea is central. No cervical or axillary lymphadenopathy noted. Carotids are 2+, JVD WNL LUNGS: Respiration seems nonlabored, no significant accessory muscle action noted. Breath sounds clear to auscultation bilaterally and equal noted. No wheezes rales or rhonchi noted. No significant dullness noted on percussion. CHEST: Palpation of the chest wall shows no significant chest wall tenderness. No other significant abnormalities noted. HEART: [place] [employer], No PSH, 1/6 TAL aortic area, 1/6 delgado systolic murmur mitral area, no rubs, no gallops. ABDOMEN: Soft, no significant tenderness appreciated, normoactive bowel sounds. No guarding, no rebound. No rigidity noted . No masses appreciated. EXTREMITIES: Pedal pulses are 1-2+, no calf tenderness noted. No clubbing or cyanosis.trace to 1+ pedal edema noted NEUROLOGICAL: Focused neurological exam showed no significant neurologic deficit. Normal speech, no focal weakness appreciated. PSYCH: Normal mood, normal affect. Judgment and insight within normal limits. SKIN: No significant ecchymosis, skin is noted to be warm. MUSCULOSKELETAL EXAM: No significant acute joint swelling noted. Results Laboratory Results: 07/18/17 06:35 07/18/17 06:35 07/18/17 07/18/17 06:35 06:35 WBC 8.9 RBC 4.60 Hgb 13.7 Hct 40.9 MCV 89 MCH 29.9 MCHC 33.6 RDW 13.3 Plt Count 315 Seg Neutrophils % 49.7 Lymphocytes % 37.6 Monocytes % 6.2 Eosinophils % 5.2 Basophils % 1.3 Absolute Neutrophils 4.4 Absolute Lymphocytes 3.4 Absolute Monocytes 0.5 Absolute Eosinophils 0.5 Absolute Basophils 0.1 Sodium 142.0 Potassium 3.8 Chloride 109 H Carbon Dioxide 25 Anion Gap 8 BUN 5 L Creatinine 0.76 Est GFR ( Amer) > 60 Est GFR (Non-Af Amer) > 60 Glucose 102 Calcium 9.4 Magnesium 1.8 Total Bilirubin 0.5 AST 24 ALT 39 Alkaline Phosphatase 57 Total Protein 6.2 L Albumin 3.5 EKG Comments: Shows sinus rhythm with minor nonspecific T-wave inversion in lateral chest leads. Telemetry strips shows no significant changes Impressions: Chest X-Ray 07/16/17 10:00 IMPRESSION: NO ACUTE RADIOGRAPHIC FINDING IN THE CHEST. Chest/Abdomen CTA 07/17/17 08:28 IMPRESSION: No PE. No acute findings. Assessment & Plan - Diagnosis (1) NSTEMI (non-ST elevated myocardial infarction) Is this a current diagnosis for this admission?: Yes (2) CAD (coronary artery disease) Qualifiers: Coronary Disease-Associated Artery/Lesion type: [place] artery Associated angina: with unstable angina Is this a current diagnosis for this admission?: Yes (3) Stented coronary artery Is this a current diagnosis for this admission?: Yes (4) Tobacco abuse Is this a current diagnosis for this admission?: Yes (5) Obesity (BMI 30-39.9) Is this a current diagnosis for this admission?: Yes - Notes Notes: Non-STEMI: This is based on troponin I elevation and presence of chest pain. Most likely related to acute coronary syndrome. Nuclear stress test revealed distal anterior wall and distal anterior septal ischemia. EKG gated EF is 47 percent. 2D echo shows normal LVEF without any significant wall motion abnormalities or significant valvular disease. At this point recommend optimizing medical therapy as much as we can but if patient continues with chest pain on exertion or at rest, recommendation would be heart catheterization. Recommend long-acting nitrates, Ranexa, beta-radha, Plavix therapy for at least a month. Patient will also benefit from close cardiology follow-up. Nevertheless patient was informed that cardiac catheterization this is still the best option for guiding therapy but she continues to decline this. Patient did tell me that she had ambulated in the hallway quite vigorously along with the nurse and had no chest pains. Coronary artery disease: Medical management is being optimized. Coronary stent: Have requested reports from previous hospitalization. These were not yet available. Tobacco abuse: Patient advised to quit smoking. Obesity: Patient encouraged in gradual weight loss. - Time Time Spent with patient: Marked increased time of approximately 50 minutes spent discussing results of nuclear stress test, results of 2D echocardiogram, proper management plans which included discussion that cardiac catheterization is still the preferred way to go but patient continues to decline this option. Patient did however subsequently understand that if she keeps on having chest pain then cardiac catheterization will be acutely medically needed. Time with patient: Greater than 35 minutes - CODE STATUS was discussed, patient remains full code. Surrogate decision-maker unchanged. Multiple medical problems were addressed. More than 50% of the time spent coordinating care, discussing management plans with involved caregivers. Management plans discussed with involved personnels. Medical decision making was of moderate to high complexity, patient's has multiple comorbidities. Medications reviewed and adjusted accordingly: Yes
[2017-07-18] MEDS ORDERED: REGADENOSON INJ 0.4 MG/5 ML DISP.SYRIN IV ONE (14:38)
[2017-07-18] MEDS ORDERED: AMINOPHYLLINE INJ/PF 250 MG/10 ML SDV IV ONE (14:38)
[2017-07-18 16:32] VITALS: BP 120/60
--- NOTE | 2017-07-18 16:36 | PDOC DISCHARGE SUMMARY ---
General - Admit/Disc Date/PCP Admission Date/Primary Care Provider: 07/17/17 15:30 Discharge Date: 07/18/17 - Discharge Diagnosis (1) NSTEMI (non-ST elevated myocardial infarction) Is this a current diagnosis for this admission?: Yes Summary: Patient underwent nuclear stress test demonstrated distal anterior wall and distal anterior septal ischemia. Cardiology recommended medical management. Patient was placed on all appropriate medications. Patient was told if she has chest pain again to return to the hospital for cardiac cath. (2) CAD (coronary artery disease) Is this a current diagnosis for this admission?: Yes Summary: Patient was placed on statin beta-radha nitro and NARGIS (3) Obesity (BMI 30-39.9) Is this a current diagnosis for this admission?: Yes Summary: Encourage dietary changes (4) Stented coronary artery Is this a current diagnosis for this admission?: Yes Summary: Patient underwent nuclear stress test that demonstrated distal anterior wall and distal anterior septal ischemia. Current plan is medical management however patient has recurrent chest pain patient will need to have cardiac cath. Patient was told to return to hospital she experienced this chest pain. (5) Tobacco abuse Is this a current diagnosis for this admission?: Yes Summary: Encouraged patient to discontinue tobacco use - Additional Information Discharge Diet: Cardiac Discharge Activity: No Lifting Over 10 Pounds, No Lifting/Push/Pulling, Slowly Increase Activity Prescriptions: Atorvastatin Calcium [Lipitor 80 mg Tablet] 80 mg PO QHS #30 tablet Clopidogrel Bisulfate [Plavix 75 mg Tablet] 75 mg PO DAILY #30 tablet Isosorbide Mononitrate [Imdur 30 mg Tablet.er] 30 mg PO DAILY #30 tab.er.24h Metoprolol Succinate [Toprol Xl 25 mg Tab.sr] 25 mg PO Q12 #60 tab.sr.24h Ramipril [Altace 1.25 mg Capsule] 1.25 mg PO DAILY #30 capsule Ranolazine [Ranexa 500 mg Tab.sr] 1,000 mg PO Q12 #120 tab.sr.12h Home Medications: Aspirin [Ecotrin 81 mg EC Tablet] 81 mg PO DAILY tabec 07/18/17 Atorvastatin Calcium [Lipitor 80 mg Tablet] 80 mg PO QHS #30 tablet 07/18/17 Clopidogrel Bisulfate [Plavix 75 mg Tablet] 75 mg PO DAILY #30 tablet 07/18/17 Isosorbide Mononitrate [Imdur 30 mg Tablet.er] 30 mg PO DAILY #30 tab.er.24h 11/28 Metoprolol Succinate [Toprol Xl 25 mg Tab.sr] 25 mg PO Q12 #60 tab.sr.24h Ramipril [Altace 1.25 mg Capsule] 1.25 mg PO DAILY #30 capsule 07/18/17 Ranolazine [Ranexa 500 mg Tab.sr] 1,000 mg PO Q12 #120 tab.sr.12h 07/18/17 History of Present Illness Patient complains of: Chest pain History of Present Illness: MELONY KOROMA is a 47 year old female presents to the hospital with complaint of chest pain. Hospital Course Hospital Course: 47-year-old female who presents to the hospital with complaint of chest pain. Patient was found to have an N STEMI. Patient underwent nuclear stress test that demonstrated descending anterior wall and distal anterior septal ischemia. Recommendation was for patient to have medical management. Patient was told to return if she has recurrence of chest pain. Patient was told that if chest pain recurs she will need to have cardiac cath. Physical Exam Vital Signs: Temp Pulse Resp BP Pulse Ox 98.1 F 70 12 116/59 L 96 07/18/17 08:03 07/18/17 14:00 07/18/17 08:03 07/18/17 08:03 07/18/17 08:03 Intake & Output 07/17/17 07/18/17 07/19/17 06:59 06:59 06:59 Intake Total 386 Balance 386 Weight 113 kg General appearance: PRESENT: no acute distress, well-developed, well-nourished Head exam: PRESENT: atraumatic, normocephalic Eye exam: PRESENT: conjunctiva pink, EOMI. ABSENT: scleral icterus Ear exam: PRESENT: normal external ear exam Mouth exam: PRESENT: moist, tongue midline Neck exam: ABSENT: carotid bruit, JVD, lymphadenopathy, thyromegaly Respiratory exam: PRESENT: clear to auscultation luis felipe. ABSENT: rales, rhonchi, wheezes Cardiovascular exam: PRESENT: RRR. ABSENT: diastolic murmur, rubs, systolic murmur Pulses: PRESENT: normal dorsalis pedis pul Vascular exam: PRESENT: normal capillary refill GI/Abdominal exam: PRESENT: normal bowel sounds, soft. ABSENT: distended, guarding, mass, organolmegaly, rebound, tenderness Rectal exam: PRESENT: deferred Extremities exam: PRESENT: full ROM. ABSENT: calf tenderness, clubbing, pedal edema Neurological exam: PRESENT: alert, awake, oriented to person, oriented to place , oriented to time, oriented to situation, CN II-XII grossly intact. ABSENT: motor sensory deficit Psychiatric exam: PRESENT: appropriate affect, normal mood. ABSENT: homicidal ideation, suicidal ideation Skin exam: PRESENT: dry, intact, warm. ABSENT: cyanosis, rash Results Laboratory Results: 07/18/17 06:35 07/18/17 06:35 07/18/17 07/18/17 06:35 06:35 WBC 8.9 RBC 4.60 Hgb 13.7 Hct 40.9 MCV 89 MCH 29.9 MCHC 33.6 RDW 13.3 Plt Count 315 Seg Neutrophils % 49.7 Lymphocytes % 37.6 Monocytes % 6.2 Eosinophils % 5.2 Basophils % 1.3 Absolute Neutrophils 4.4 Absolute Lymphocytes 3.4 Absolute Monocytes 0.5 Absolute Eosinophils 0.5 Absolute Basophils 0.1 Sodium 142.0 Potassium 3.8 Chloride 109 H Carbon Dioxide 25 Anion Gap 8 BUN 5 L Creatinine 0.76 Est GFR ( Amer) > 60 Est GFR (Non-Af Amer) > 60 Glucose 102 Calcium 9.4 Magnesium 1.8 Total Bilirubin 0.5 AST 24 ALT 39 Alkaline Phosphatase 57 Total Protein 6.2 L Albumin 3.5 Impressions: Chest X-Ray 07/16/17 10:00 IMPRESSION: NO ACUTE RADIOGRAPHIC FINDING IN THE CHEST. Chest/Abdomen CTA 07/17/17 08:28 IMPRESSION: No PE. No acute findings. Qualifiers - * PATEINT BEING DISCHARGED WITH ANY OF THE FOLLOWING DIAGNOSIS?: No Plan Time Spent: Greater than 30 Minutes
--- NOTE | 2017-07-18 18:41 | DRAGON STRESS TEST REPORT ---
INTRAVENOUS LEXISCAN CARDIOLITE STRESS TEST USING SINGLE PHOTON EMMISION COMPUTERIZED TOMOGRAPHIC. DATE OF PROCEDURE: July 18, 2017, INDICATION : Non-STEMI CARDIAC RISK FACTORS: Hypertension, dyslipidemia, tobacco abuse, known history of CAD RESTING EKG: Sinus rhythm, no baseline ST-T wave changes noted. STRESS EKG: No significant changes noted with LexiScan bolus REASON FOR TERMINATION: Protocol. PROCEDURE REPORT: Baseline heart rate 60 beats per minute with blood pressure of 114/90. Patient had no significant complaints. Heart rate at 2 minutes post bolus 99 with a blood pressure of 119/74. 3 minutes post bolus heart rate 76 with blood pressure of 123/76. No significant EKG changes were noted. Patient had no significant complaints during the procedure or postprocedure. Patient injected with Aminophyllin 75 mg at 3 minutes or later after Lexiscan bolus. CONCLUSIONS: Normal EKG and hemodynamic response to IV LexiScan. NUCLEAR DATA: 2 day protocol was followed. Rest on day 1, stressed the next day. At rest the patient was given 41.4 millicuries of technetium 99 sestamibi injected intravenously. As per protocol rest gated SPECT images were obtained. On day of stress test, the patient was given intravenous LexiScan at a dose of 0.4 mg in 5 mL intravenously, followed by flush with normal saline. Subsequently the stress dose of 43.9 millicuries of technetium 99 sestamibi was injected intravenously. As per protocol stress gated images were obtained. NUCLEAR INTERPRETATION: Both raw and processed data were used for interpretation. Visual, qualitative, computer-generated quantitative data was used. There was good myocardial uptake of technetium compound. Motion artifact and soft tissue attenuations were noted. Increased visceral uptake was noted. Mild transient perfusion defect noted involving the distal anterior wall and distal anterior septum. No definitive areas of fixed perfusion defect or scars noted. EKG gated imaging showed LV EF at 47 %, rest and stress gated EF similar visually, no definitive wall motion normality/however noted. T. I D. ratio was 1.10. Lung heart ratio noted to be within normal limits 0.30. No significant extracardiac and abnormal radiotracer activities were noted. RV free wall uptake was noted to be WNL. IMPRESSION: Also refer to comments under nuclear interpretation. Also test results needs to be interpreted in the context of pretest probability. 1. Mild transient perfusion defect noted involving the distal anterior wall and distal anterior septum consistent with mild ischemia. 2. There is no definitive scintigraphic evidence of myocardial infarction/scar. 3. EKG gated imaging shows left ventricular ejection fraction of approx. 47 %. 4. Clinical correlation requested as occasionally worse disease or balanced ischemia could be missed. In approximately 10% of the cases Lexiscan may not cause adequate vasodilatory stress. RECOMMENDATIONS: Aggressive risk factor modification and medical management. Further evaluation may be needed if continued symptoms or other high risk indicators are noted on clinical evaluation. In view of non-STEMI, patient was actually recommended a heart catheterization but she declined to pursue this therefore nuclear stress test was performed. Close cardiology follow-up is also recommended. Clinical correlation with echocardiogram derived ejection fraction. Inability to exercise by itself can lead to increased cardiovascular event risks. Consider cardiology consultation and or follow-up if clinically indicated. 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 LELE
[2017-07-18] MEDS ORDERED: RANOLAZINE 500 MG TAB.SR.12H PO SCH (22:00)
[2017-07-18] MEDS ORDERED: METOPROLOL SUCCINATE 25 MG TAB.SR.24H PO SCH (22:00)
[2017-07-19] MEDS ORDERED: ISOSORBIDE MONONITRATE 30 MG TAB.ER.24H PO SCH (10:00)
== END 2017-07-18 17:00 | disposition home or self-care (01) | DRG 282 ==
LOC: ER 09:44 → EH 12:08 → INTOOBSV 12:08 → 5 17:45 → OBSVTOIN 07-17 15:30
PROVIDERS: ADMIT Internal Medicine; ATTEND Internal Medicine
DX: I21.4 Non-ST elevation (NSTEMI) myocardial infarction (principal); I25.110 Atherosclerotic heart disease of native coronary artery with unstable angina pectoris; M19.90 Unspecified osteoarthritis, unspecified site; D64.9 Anemia, unspecified; I10 Essential (primary) hypertension; F17.210 Nicotine dependence, cigarettes, uncomplicated; I25.2 Old myocardial infarction; E66.9 Obesity, unspecified; Z68.39 Body mass index [BMI] 39.0-39.9, adult; Z95.5 Presence of coronary angioplasty implant and graft; Z79.899 Other long term (current) drug therapy; Z82.49 Family history of ischemic heart disease and other diseases of the circulatory system
CPT/HCPCS: 36415; 71045; 71275; 78452; 80053; 80061; 81001; 82550; 83735; 83880; 84443; 84484; 85025; 87086; 93005; 93010; 93017; 93306; 99285; A9500; G0378; J0280; J1650; J2785; J3490; Q9969